=== PATIENT | female | born 1940 | race Asian ===

== ENCOUNTER 2024-09-18 13:28 | Emergency (ER) | payer MEDICARE, OTHER ==
[~2024-09-18] VITALS: Ht 157.5 cm; Wt 54.5 kg
[~2024-09-18 13:28] MED LIST: AMLO10TA55 PO; ASPI81TA39 PO; ATOR10TA PO; CALC-15 PO; CYCL10TA16 PO; HYDR25TA PO; LISI10TA24 PO; METF-444 PO; MULT-1106 PO
[2024-09-18 13:43] VITALS: TEMP 98
[2024-09-18 16:10] VITALS: BP 160/61; PULSE 82; RESP 17; O2SAT 98
== END 2024-09-18 18:30 | disposition left against medical advice (07) ==
LOC: EMS 13:34
DX: B99.9 Unspecified infectious disease (principal); M79.89 Other specified soft tissue disorders; Z53.21 Procedure and treatment not carried out due to patient leaving prior to being seen by health care provider
CPT/HCPCS: 82962; 99281